=== PATIENT | female | born 1955 | race Caucasian/White ===

== ENCOUNTER 2021-11-26 05:49 | Inpatient (IN) ==
[2021-11-21 15:35] LABS: Bacteria,Urine Occasional /HPF (Few); Mucus,Urine Few /LPF (Occasional); RBC,Urine 3 /HPF (0-4); Squamous Epithelial Cell,Urine Few /HPF (0-10)
[2021-11-21 15:36] LABS: Basophils # 0.1 10*3/uL (0.0-0.2); Basophils % 1.3 % (0.0-0.8); Bilirubin,Urine Small mg/dL (Negative); Eosinophils # 0.1 10*3/uL (0.0-0.87); Eosinophils % 1.6 % (0.00-10.9); Glucose,Urine (UA) Negative (Negative); Hematocrit 39.5 VOL% (35.7-47.0); Hemoglobin 12.9 GM/DL (12.0-16.0); Immature Granulocytes % 0.3 %; Immature Granulocytes Absolute 0.02 #; Ketones,Urine Trace mg/dL (Negative); Lymphocytes # 2.8 10*3/uL (1.4-4.0); Lymphocytes % 43.6 % (21.3-54.2); Mean Corpuscular HGB Conc 32.7 GM/DL (32-36); Mean Platelet Volume 10.6 FL (9.6-12.0); Monocytes % 8.9 % (1.7-12.7); Neutrophils % 44.3 % (38.7-73.9); Nitrite,Urine Negative (Negative); Platelet Count 276 T/CUMM (130-400); Protein,Urine Trace MG/DL; Red Blood Count 4.54 MC/CUMM (3.8-5.5); Red Cell Distribution Width 12.9 % (9.3-17.3); Urine Appearance Clear (Clear); Urine Color Yellow (Yellow); Urine Specific Gravity 1.025 (1.001-1.035); Urine pH 5.5 (4.5-8.0); White Blood Count 6.4 T/CUMM (4-12)
[2021-11-21 15:37] LABS: Blood, Urine Negative (Negative)
[2021-11-21 15:44] LABS: INR 1.1; PT Patient Result 11.9 SECS (10.5-12.0); Partial Thromboplastin Time 24.8 SECS (23.8-32.1)
[2021-11-21 15:53] LABS: Bilirubin,Total 0.8 MG/DL (0.20-1.00); Calcium 9.7 MG/DL (8.5-10.1); Osmolality,Calculated 279.7 MOS/KG (273-304); Potassium 4.7 MMOL/L (3.5-5.1); Total Protein 7.8 G/DL (6.4-8.2)
[2021-11-26] MEDS ORDERED: VANCOMYCIN INJ 1,000 MG in SODIUM CHLORIDE 0.9% 250 ML IV ONE (06:00)
[2021-11-26] MEDS ORDERED: DEXAMETHASONE 4 MG/1 ML VIAL ONE ×2 (07:24→09:47)
[2021-11-26] MEDS ORDERED: BUPIVACAINE MPF 0.25% 30 ML VIAL ONE (07:24)
[2021-11-26] MEDS ORDERED: ROPIVACAINE 0.5% 30 ML VIAL ONE (07:24)
[2021-11-26] MEDS ORDERED: MIDAZOLAM 2 MG/2 ML VIAL ONE (07:29)
[2021-11-26] MEDS ORDERED: fentaNYL 100 MCG/2 ML VIAL ONE (07:29)
[2021-11-26] MEDS ORDERED: PANTOPRAZOLE 40 MG TABLET PO ONE (07:30)
[2021-11-26] MEDS ORDERED: ACETAMINOPHEN 500 MG TABLET PO ONE (07:30)
[2021-11-26] MEDS ORDERED: GABAPENTIN 400 MG CAPSULE PO ONE (07:30)
[2021-11-26] MEDS ORDERED: BUPIVACAINE SPINAL 0.75% 2 ML AMP SPINAL ONE ×3 (07:31→09:49)
[2021-11-26] MEDS ORDERED: LACTATED RINGERS 1,000 ML IV SCH (08:00)
[2021-11-26] MEDS ORDERED: diphenhydrAMINE CAP 25 MG CAPSULE PO PRN (08:33)
[2021-11-26] MEDS ORDERED: MORPHINE 4 MG/1 ML VIAL IV PRN ×2 (08:33→09:20)
[2021-11-26] MEDS ORDERED: ONDANSETRON 4 MG/2 ML VIAL IV PRN (08:33)
[2021-11-26] MEDS ORDERED: BISACODYL 10 MG SUPP RECTAL PRN (08:33)
[2021-11-26] MEDS ORDERED: TEMAZEPAM 7.5 MG CAPSULE PO PRN (08:33)
[2021-11-26] MEDS ORDERED: LACTULOSE 20 GM/30 ML UDCUP PO PRN (08:33)
[2021-11-26] MEDS ORDERED: MAGNESIUM HYDROXIDE SUSP 30 ML UDCUP PO PRN (08:33)
[2021-11-26] MEDS ORDERED: GLUCAGON 1 MG VIAL IM PRN (08:38)
[2021-11-26] MEDS ORDERED: DEXTROSE 10% 250 ML BAG IV PRN (08:38)
[2021-11-26] MEDS ORDERED: IBUPROFEN 400 MG TABLET PO PRN (09:00)
[2021-11-26] MEDS ORDERED: NON-FORMULARY MEDICATION (Apple Cider Vinegar 500 mg Tablet) PO SCH (09:00)
[2021-11-26] MEDS ORDERED: LIDOCAINE 2% 5 ML VIAL ONE (09:48)
[2021-11-26] MEDS ORDERED: TRANEXAMIC ACID 1,000 MG/10 ML VIAL ONE (09:49)
[2021-11-26] MEDS ORDERED: propofoL 200 MG/20 ML VIAL IV ONE ×3 (09:49→09:50)
[2021-11-26] MEDS ORDERED: ROCURONIUM 50 MG/5 ML VIAL IV ONE (09:56)
[2021-11-26] MEDS ORDERED: ONDANSETRON 4 MG/2 ML VIAL ONE (09:56)
[2021-11-26 11:04] LABS: Glucose,Urine (UA) Negative (Negative); Ketones,Urine Negative (Negative); Mucus,Urine Occasional /LPF (Occasional); Protein,Urine Negative; Urine Appearance Clear (Clear); Urine Color Yellow (Yellow)
[2021-11-26 11:05] LABS: Bilirubin,Urine Negative (Negative); Blood, Urine Negative (Negative); Nitrite,Urine Negative (Negative)
[2021-11-26] MEDS: INSULIN REGULAR 100 UNIT/ML SUBCUT SCH ×3 (12:35→22:24)
[2021-11-26] MEDS: CLOPIDOGREL 75 MG TABLET PO SCH (12:35)
[2021-11-26] MEDS: PANTOPRAZOLE 40 MG TABLET PO SCH (16:45)
[2021-11-26] MEDS: ceFAZolin 2,000 MG/50 ML DUPLEX IV SCH ×2 (16:46→22:23)
[2021-11-26] MEDS: metFORMIN 500 MG TABLET PO SCH (17:09)
[2021-11-26] MEDS: ASPIRIN EC 81 MG TABLET PO SCH (22:23)
[2021-11-26] MEDS: DOCUSATE SODIUM 100 MG CAPSULE PO SCH (22:23)
[2021-11-26] MEDS: MAGNESIUM CHLORIDE 64 MG TABLET PO SCH (22:23)
[2021-11-26] MEDS: INSULIN GLARGINE 100 UNIT/ML SUBCUT SCH (22:24)
[2021-11-26] MEDS: METOPROLOL SUCCINATE XL 50 MG TABLET PO SCH (22:24)
[2021-11-27] MEDS: FONDAPARINUX 2.5 MG/0.5 ML SYRINGE SUBCUT SCH (05:20)
[2021-11-27 05:46] LABS: Basophils % 0.2 % (0.0-0.8); Eosinophils % 0.1 % (0.00-10.9); Hematocrit 29.7 VOL% (35.7-47.0); Hemoglobin 9.5 GM/DL (12.0-16.0); Immature Granulocytes % 0.4 %; Lymphocytes # 2.5 10*3/uL (1.4-4.0); Lymphocytes % 25.7 % (21.3-54.2); Mean Corpuscular Volume 87.9 FL (87-102); Mean Platelet Volume 10.8 FL (9.6-12.0); Monocytes % 11.3 % (1.7-12.7); Neutrophils % 62.3 % (38.7-73.9); Platelet Count 181 T/CUMM (130-400); Red Blood Count 3.38 MC/CUMM (3.8-5.5); Red Cell Distribution Width 13.2 % (9.3-17.3); White Blood Count 9.5 T/CUMM (4-12)
[2021-11-27 05:47] LABS: Immature Granulocytes Absolute 0.04 #
[2021-11-27 05:52] LABS: Calcium 8.4 MG/DL (8.5-10.1); Potassium 4.2 MMOL/L (3.5-5.1)
[2021-11-27] MEDS: INSULIN REGULAR 100 UNIT/ML SUBCUT SCH ×4 (08:31→21:04)
[2021-11-27] MEDS ORDERED: ACETAMINOPHEN 325 MG TABLET PO PRN (08:34)
[2021-11-27] MEDS: amLODIPine 10 MG TABLET PO SCH (08:40)
[2021-11-27] MEDS: PANTOPRAZOLE 40 MG TABLET PO SCH ×2 (08:40→16:23)
[2021-11-27] MEDS: DOCUSATE SODIUM 100 MG CAPSULE PO SCH ×2 (08:40→21:03)
[2021-11-27] MEDS: CLOPIDOGREL 75 MG TABLET PO SCH (08:40)
[2021-11-27] MEDS: METOPROLOL SUCCINATE XL 50 MG TABLET PO SCH ×2 (08:41→21:03)
[2021-11-27] MEDS: FENOFIBRATE 145 MG TABLET PO SCH (08:41)
[2021-11-27] MEDS: MAGNESIUM CHLORIDE 64 MG TABLET PO SCH ×2 (08:41→21:03)
[2021-11-27] MEDS: metFORMIN 500 MG TABLET PO SCH ×2 (08:41→16:23)
[2021-11-27] MEDS: ASPIRIN EC 81 MG TABLET PO SCH (21:03)
[2021-11-27] MEDS: INSULIN GLARGINE 100 UNIT/ML SUBCUT SCH (21:04)
[2021-11-28] MEDS: FONDAPARINUX 2.5 MG/0.5 ML SYRINGE SUBCUT SCH (05:48)
[2021-11-28] MEDS: metFORMIN 500 MG TABLET PO SCH (08:41)
[2021-11-28] MEDS: PANTOPRAZOLE 40 MG TABLET PO SCH (08:41)
[2021-11-28] MEDS: CLOPIDOGREL 75 MG TABLET PO SCH (08:41)
[2021-11-28] MEDS: METOPROLOL SUCCINATE XL 50 MG TABLET PO SCH (08:41)
[2021-11-28] MEDS: MAGNESIUM CHLORIDE 64 MG TABLET PO SCH (08:41)
[2021-11-28] MEDS: DOCUSATE SODIUM 100 MG CAPSULE PO SCH (08:41)
[2021-11-28] MEDS: amLODIPine 10 MG TABLET PO SCH (08:41)
[2021-11-28] MEDS: FENOFIBRATE 145 MG TABLET PO SCH (08:42)
[2021-11-28] MEDS: INSULIN REGULAR 100 UNIT/ML SUBCUT SCH ×2 (09:38→11:57)
[2021-11-28 11:52] VITALS: BP 125/63
[2021-11-29] MEDS ORDERED: ALIROCUMAB 75 MG/ML SUBCUT SCH (09:00)
[2021-11-29] MEDS ORDERED: ERGOCALCIFEROL 50,000 UNIT CAPSULE PO SCH (09:00)
== END 2021-11-28 14:12 | DRG 470 ==
LOC: N.OR 05:49 → N.SDSINP 05:51 → N.3E 08:30
PROVIDERS: ADMIT Orthopaedic Surgery; ATTEND Orthopaedic Surgery